=== PATIENT | female | born 1940 | race African-American/Black ===

== ENCOUNTER 2017-10-18 14:04 | Emergency (ER) | payer OTHER, BC ==
[~2017-10-18] VITALS: Ht 152.4 cm; Wt 103.1 kg
[~2017-10-18 14:04] MED LIST: ACTOS15 MG PO; ASPIR 8181 M1 PO; BENICAR HCT 401 EAC1 PO; CIPRO500 MG PO; Cepacol Lozenge, Sor MM; Ecotrin PO; FIORICET,ESG1 TABLET PO; FUROSEMIDE20 MG PO; FUROSEMIDE40 MG PO; Glucophage PO; HYDROCET 5-5001 EACH PO; Hyzaar 100-25 PO; IRON325 M1 PO; JANUMET 50/11 TABLET PO; JANUMET 50/51 TABLET PO; Januvia PO; LANTUS 3 M100 UNITS/ PO; LANTUS 3 M100 UNITS1 SC; LANTUS100 UNIT/1 SC; LATANOPROST2.5 ML; LEVAQUIN500 MG PO; LO-DOSE ASPIRIN81 M1 PO; LOSARTAN-HCTZ1 EAC1 PO; LUMIGAN 0.50 DROP/2. BOTH EYES; LYRICA100 MG PO; LYRICA50 MG; LYRICA50 MG PO; Lasix PO; MELOXICAM7.5 MG PO; MOBIC7.5 MG PO; NORCO 5/3251 TABLET PO; NOVOLOG100 UNIT/3 SQ; PYRIDIUM100 MG PO; SPIRIVA1 INHALATI IH; Senokot S,Pericolace PO; TOPROL XL50 MG PO; Tylenol Regular Stre PO; XALATAN 0.50 DROP/2. BOTH EYES; Xalatan 0.005% Ophth RIGHT EYE; oxyCODONE PO
[2017-10-18 14:08] VITALS: BP 184/65
== END 2017-10-18 16:40 | disposition home or self-care (01) ==
LOC: EME 14:04
DX: M17.12 Unilateral primary osteoarthritis, left knee (principal); E11.9 Type 2 diabetes mellitus without complications; E78.5 Hyperlipidemia, unspecified; G89.29 Other chronic pain; I10 Essential (primary) hypertension; Z87.891 Personal history of nicotine dependence; Z88.0 Allergy status to penicillin
CPT/HCPCS: 73564; 99281; 99284